=== PATIENT | female | born 1980 | race Caucasian/White ===

== ENCOUNTER 2018-04-13 09:27 | Emergency (ER) | payer SELFPAY ==
[~2018-04-13] VITALS: Ht 170.2 cm; Wt 70.0 kg
[2018-04-13] MEDS ORDERED: KEFLEX500 MG PO (10:23)
[2018-04-13] MEDS ORDERED: PYRIDIUM200 MG PO (10:23)
[2018-04-13 10:30] VITALS: BP 116/79
[2018-04-13 10:44] LABS: URINE BILIRUBIN - DIPSTICK NEGATIVE (NEGATIVE); URINE BLOOD DIPSTICK SMALL (NEGATIVE); URINE COLOR YELLOW; URINE GLUCOSE - DIPSTICK NEGATIVE (NEGATIVE); URINE KETONE NEGATIVE (NEGATIVE); URINE LEUK ESTERASE NEGATIVE (NEGATIVE); URINE NITRITE - DIPSTICK NEGATIVE (Negative); URINE PROTEIN - DIPSTICK NEGATIVE (NEG-TRACE); URINE UROBILINOGEN - DIPSTICK 0.2 E.U./dL (0.2)
[2018-04-13 10:45] LABS: URINE CLARITY CLEAR
== END 2018-04-13 10:30 | disposition home or self-care (01) | DRG 690 ==
LOC: ED 09:27
PROVIDERS: Emergency Medicine
DX: N39.0 Urinary tract infection, site not specified (principal)